=== PATIENT | female | born 1995 | race Two or more races ===

== ENCOUNTER → 2022-12-16 | Outpatient (CLI) | payer OTHER | END | disposition home or self-care (01) | LOC: SONOGRAMA 15:02 | PROVIDERS: ATTEND Obstetrics & Gynecology | DX: R10.2 Pelvic and perineal pain (principal); Z34.01 Encounter for supervision of normal first pregnancy, first trimester; N94.89 Other specified conditions associated with female genital organs and menstrual cycle ==

== ENCOUNTER 2023-02-23 08:56 | Inpatient (IN) | payer OTHER ==
[~2023-02-23] VITALS: Ht 157.5 cm; Wt 78.9 kg
[2023-02-23] MEDS ORDERED: PRENATAL + DHA1 EACH PO (09:09)
[2023-02-23] MEDS ORDERED: FOLIC ACID20 MG PO (16:22)
[2023-02-23] MEDS ORDERED: CALCIO (16:22)
== END 2023-02-24 17:14 | disposition home or self-care (01) | DRG 806 ==
LOC: ER 08:56 → LDR 15:32 → SURH 02-24 07:52
PROVIDERS: ADMIT Obstetrics & Gynecology; ATTEND Obstetrics & Gynecology
PROC: 10E0XZZ Delivery of Products of Conception, External Approach (ICD-10-PCS; principal; 2023-02-23)
PROC: 3E0P7VZ Introduction of Hormone into Female Reproductive, Via Natural or Artificial Opening (ICD-10-PCS; 2023-02-23)
PROC: 3E0DXGC Introduction of Other Therapeutic Substance into Mouth and Pharynx, External Approach (ICD-10-PCS; 2023-02-23)
PROC: 4A1HXCZ Monitoring of Products of Conception, Cardiac Rate, External Approach (ICD-10-PCS; 2023-02-23)
PROC: BY4CZZZ Ultrasonography of Second Trimester, Single Fetus (ICD-10-PCS; 2023-02-23)
PROC: BU4CZZZ Ultrasonography of Uterus and Ovaries (ICD-10-PCS; 2023-02-23)
DX: O03.6 Delayed or excessive hemorrhage following complete or unspecified spontaneous abortion (principal); O26.872 Cervical shortening, second trimester; Z37.1 Single stillbirth; O26.852 Spotting complicating pregnancy, second trimester; O26.842 Uterine size-date discrepancy, second trimester; Z3A.18 18 weeks gestation of pregnancy; Z20.822 Contact with and (suspected) exposure to COVID-19